=== PATIENT | male | born 1945 | race Caucasian/White ===

== ENCOUNTER 2017-10-30 02:53 | Emergency (ER) | payer OTHER, MEDICARE ==
[2017-10-30] MEDS ORDERED: NS 1,000 ML IV ONE (03:19)
[2017-10-30] MEDS ORDERED: ONDANSETRON 4 MG/2 ML VIAL IVP ONE (03:26)
[2017-10-30] MEDS ORDERED: KETOROLAC 15 MG/1 ML SDV IVP ONE (03:26)
--- NOTE | 2017-10-30 03:31 | EDPHY ---
H & P Time Seen by Provider: 10/30/17 03:19 HPI/ROS: HPI The patient presents with right-sided flank pain which has been present intermittently for the last 1 week but became worse several days ago. The pain begins in his right lower flank and radiates toward his right lower quadrant. It is achy in nature. He has taken ibuprofen with some improvement in the pain. It is associated with nausea without vomiting. The pain is moderate in severity knee currently rates at a 7/10. He does not have any dysuria or hematuria.. REVIEW OF SYSTEMS Constitutional: No fever, no chills. Eyes: No discharge. ENT: No sore throat. Cardiovascular: No chest pain, no palpitations. Respiratory: No cough, no shortness of breath. Gastrointestinal: No abdominal pain, no vomiting. Genitourinary: No hematuria. Musculoskeletal: No back pain. Skin: No rashes. Neurological: No headache. PMHx: Hypertension, chronic renal insufficiency with renal stents in place Soc Hx: Housed PHYSICAL General Appearance: Alert, comfortable-appearing Eyes: Pupils equal and round no pallor or injection ENT, Mouth: Mucous membranes moist Respiratory: There are no retractions, lungs are clear to auscultation Cardiovascular: Regular rate and rhythm Gastrointestinal: Abdomen is soft and non-tender, no masses, bowel sounds normal Back: No flank tenderness Neurological: A&O, moves all extremities Skin: Warm and dry, no rashes Musculoskeletal: Neck is supple non tender Extremities: symmetrical, full range of motion Psychiatric: Patient is oriented X 3, there is no agitation Source: Patient Exam Limitations: No limitations - Personal History Tetanus Vaccine Date: unknown - Medical/Surgical History Hx Asthma: No Hx Chronic Respiratory Disease: No Hx Diabetes: No Hx Cardiac Disease: No Hx Renal Disease: No Hx Cirrhosis: No Hx Alcoholism: No Hx HIV/AIDS: No Hx Splenectomy or Spleen Trauma: No Other PMH: HTN, intraparencymal relnal artery disease, CRF. PSHx: R leg bypass - Social History Smoking Status: Never smoked Constitutional: Initial Vital Signs Temperature (C) 36.5 C 10/30/17 03:39 Heart Rate 80 10/30/17 03:39 Respiratory Rate 16 10/30/17 03:39 Blood Pressure 150/85 H 10/30/17 03:39 O2 Sat (%) 95 10/30/17 03:39 O2 Delivery Mode Room Air Allergies/Adverse Reactions: No Known Allergies Allergy (Verified 10/30/17 03:45) Home Medications: Medication Instructions Recorded Aspirin [Aspirin 81mg (*)] 81 mg PO BID@08,22 02/22/12 Fluticasone Nasal [Flonase Nasal 1 sprays EACHNARE DAILY 02/22/12 [place]] Lisinopril [Zestril 40 mg (*)] 40 mg PO DAILY 02/22/12 Simvastatin [Zocor 20 mg] 20 mg PO DAILY 02/22/12 Pantoprazole Sodium [Protonix] 40 mg PO 03/26/13 Tamsulosin HCl 01/28/16 Zolpidem Tartrate 01/28/16 Amlodipine Besylate 10/30/17 Medical Decision Making Differential Diagnosis: This is a 72-year-old man with history of chronic kidney disease with stents in place who presents with several days of intermittent right-sided flank pain associated with nausea. On exam, he is generally well-appearing, he does not have any tenderness. Differential diagnosis includes renal colic, appendicitis, constipation. In the emergency department, IV line was established and patient was given IV fluids. He was given Zofran and Toradol for his pain. Basic labs were checked and were unremarkable except for renal function. Labs were checked and were unremarkable, patient has a history of chronic renal insufficiency. CT scan showed no kidney stones, hydronephrosis, or other findings to suggest kidney stone. He does have a ring-like structure within his transverse colon. I discussed this with him. His last colonoscopy was 3-4 years ago and was normal. I have told him that he needs to follow up with Gastroenterology and make an appointment to be seen. He felt better after IV fluids, Zofran, Toradol and was discharged home. - Data Points Laboratory Results: Laboratory Results 10/30/17 03:15 10/30/17 03:15 10/30/17 10/30/17 10/30/17 04:16 03:15 03:15 WBC 7.99 10^3/uL 10^3/uL (3.80-9.50) RBC 4.55 10^6/uL 10^6/uL (4.40-6.38) Hgb 14.2 g/dL g/dL (13.7-17.5) Hct 41.5 % % (40.0-51.0) MCV 91.2 fL fL (81.5-99.8) MCH 31.2 pg pg (27.9-34.1) MCHC 34.2 g/dL g/dL (32.4-36.7) RDW 14.1 % % (11.5-15.2) Plt Count 189 10^3/uL 10^3/uL (150-400) MPV 10.0 fL fL (8.7-11.7) Neut % (Auto) 71.6 % % (39.3-74.2) Lymph % (Auto) 17.5 % % (15.0-45.0) [place] % (Auto) 7.8 % % (4.5-13.0) Eos % (Auto) 2.1 % % (0.6-7.6) Baso % (Auto) 0.5 % % (0.3-1.7) Nucleat RBC Rel Count 0.0 % % (0.0-0.2) Absolute Neuts (auto) 5.72 10^3/uL 10^3/uL (1.70-6.50) Absolute Lymphs (auto) 1.40 10^3/uL 10^3/uL (1.00-3.00) Absolute Monos (auto) 0.62 10^3/uL 10^3/uL (0.30-0.80) Absolute Eos (auto) 0.17 10^3/uL 10^3/uL (0.03-0.40) Absolute Basos (auto) 0.04 10^3/uL 10^3/uL (0.02-0.10) Absolute Nucleated RBC 0.00 10^3/uL 10^3/uL (0-0.01) Immature Gran % 0.5 % % (0.0-1.1) Immature Gran # 0.04 10^3/uL 10^3/uL (0.00-0.10) Sodium 142 mEq/L mEq/L (135-145) Potassium 3.8 mEq/L mEq/L (3.5-5.2) Chloride 101 mEq/L mEq/L (97-110) Carbon Dioxide 24 mEq/l mEq/l (22-31) Anion Gap 17 mEq/L H mEq/L (8-16) BUN 32 mg/dL H mg/dL (7-23) Creatinine 1.4 mg/dL H mg/dL (0.7-1.3) Estimated GFR 50 Glucose 109 mg/dL H mg/dL (70-100) Calcium 8.8 mg/dL mg/dL (8.5-10.4) Total Bilirubin 0.7 mg/dL mg/dL (0.1-1.4) AST 20 IU/L IU/L (17-59) ALT 32 IU/L IU/L (21-72) Alkaline Phosphatase 80 IU/L IU/L (38-126) Total Protein 7.0 g/dL g/dL (6.3-8.2) Albumin 4.1 g/dL g/dL (3.5-5.0) Urine Color YELLOW Urine Appearance CLEAR Urine pH 6.0 (5.0-7.5) Ur Specific [place] 1.020 (1.002-1.030) Urine Protein NEGATIVE (NEGATIVE) Urine Ketones NEGATIVE (NEGATIVE) Urine Blood NEGATIVE (NEGATIVE) Urine Nitrate NEGATIVE (NEGATIVE) Urine Bilirubin NEGATIVE (NEGATIVE) Urine Urobilinogen 0.2 EU EU (0.2-1.0) Ur Leukocyte Esterase NEGATIVE (NEGATIVE) Urine Glucose NEGATIVE (NEGATIVE) Medications Given: Discontinued Medications Sodium Chloride (Ns) 1,000 mls @ 0 mls/hr IV ONCE ONE PRN Reason: Wide Open Stop: 10/30/17 03:20 Last Admin: 10/30/17 03:25 Dose: 1,000 mls Ketorolac Tromethamine (Toradol) 15 mg IVP EDNOW ONE Stop: 10/30/17 03:27 Last Admin: 10/30/17 03:31 Dose: 15 mg Ondansetron HCl (Zofran) 4 mg IVP EDNOW ONE Stop: 10/30/17 03:27 Last Admin: 10/30/17 03:31 Dose: 4 mg Departure - Departure Disposition: Home, Routine, Self-Care Clinical Impression: Right flank pain Condition: Good Instructions: Flank Pain (ED) Additional Instructions: Your pain could be related to a muscle ache. I recommend you take ibuprofen 400 mg with acetaminophen 650 mg every 6 hr as needed for pain. It is also possible that you may have passed a kidney stone. Your CT scan did show that in your colon there is an area that appears abnormal. You need to follow up with your manager of hospital and make an appointment to be seen. Referrals: [facility],. [Edm Groups for Call Sched] - As per Instructions
[2017-10-30 03:34] LABS: PLATELET COUNT 189 10^3/uL (150-400)
[2017-10-30 03:45] VITALS: RESP 16; TEMP 97.7
[2017-10-30 05:19] VITALS: BP 152/88; PULSE 72; O2SAT 94
== END 2017-10-30 04:30 | disposition home or self-care (01) ==
LOC: CED 02:53
DX: R10.9 Unspecified abdominal pain (principal); I10 Essential (primary) hypertension; Z79.82 Long term (current) use of aspirin
CPT/HCPCS: 74176; 96361; 96374; 96375; 99285; J1885; J2405; 80053-PO; 81003-PO; 85025-PO

== ENCOUNTER 2018-10-22 09:38 | Emergency (ER) | payer OTHER, MEDICARE ==
[2018-10-22] MEDS ORDERED: IBUPROFEN 600 MG TAB PO ONE (10:01)
--- NOTE | 2018-10-22 10:39 | EDPHY ---
H & P Stated Complaint: Friday started with heel pain on right side. Time Seen by Provider: 10/22/18 09:43 HPI/ROS: Chief Complaint: Heel pain HPI: 73-year-old male's been having pain in his right heel for the last 3 days. Patient states this is on the outside of his bottom of his foot. It hurts to walk on it. No falls or injuries. Does have a history of gout but this does not feel the same. No leg pain or swelling. Foot is not feel cold. No numbness or tingling. ROS: 10 systems were reviewed and were negative except those elements noted in the HPI. Social History: No smoking, no alcohol, no recreational drug use Family History: non-contributory Physical Exam: Gen: Awake, Alert, No Distress HEENT: Nose: no rhinorrhea Eyes: PERRLA, EOMI Mouth: Moist mucosa Neck: Supple, no JVD Chest: nontender, lungs clear to auscultation Heart: S1, S2 normal, no murmur Abd: Soft, non-tender, no guarding Back: no CVA tenderness, no midline tenderness Ext: no edema, patient has 2+ dorsalis pedis and posterior tibial pulses on bilateral lower extremities. Capillary refills less than 3 sec. Patient has point tenderness on the lateral aspect of his distal calcaneus reproducing his presenting complaint. There is no swelling. There is no erythema. There is no joint pain or tenderness. Sensations intact in all dermatomes. Skin: no rash Neuro: CN II-XII intact, Sensation grossly intact, Strength 5/5 in bilateral upper and lower extremities - Personal History Current Tetanus Diphtheria and Acellular Pertussis (TDAP): Yes Tetanus Vaccine Date: unknown - Medical/Surgical History Hx Asthma: No Hx Chronic Respiratory Disease: No Hx Diabetes: No Hx Cardiac Disease: No Hx Renal Disease: No Hx Cirrhosis: No Hx Alcoholism: No Hx HIV/AIDS: No Hx Splenectomy or Spleen Trauma: No Other PMH: HTN, intraparencymal relnal artery disease, CRF. PSHx: R leg bypass , appy, left shoulder repair , tonsilectomy - Social History Smoking Status: Never smoked Constitutional: Initial Vital Signs Temperature (C) 37 C 10/22/18 09:46 Heart Rate 83 10/22/18 09:46 Respiratory Rate 16 10/22/18 09:46 Blood Pressure 143/78 H 10/22/18 09:46 O2 Sat (%) 97 10/22/18 09:46 O2 Delivery Mode Room Air Allergies/Adverse Reactions: No Known Allergies Allergy (Verified 10/22/18 09:52) Home Medications: Medication Instructions Recorded Aspirin [Aspirin 81mg (*)] 81 mg PO BID@08,22 02/22/12 Fluticasone Nasal [Flonase Nasal 1 sprays EACHNARE DAILY 02/22/12 [place]] Lisinopril [Zestril 40 mg (*)] 40 mg PO DAILY 02/22/12 Simvastatin [Zocor 20 mg] 20 mg PO DAILY 02/22/12 Pantoprazole Sodium [Protonix] 40 mg PO 03/26/13 Tamsulosin HCl 01/28/16 Zolpidem Tartrate 01/28/16 Amlodipine Besylate 10/30/17 Folic Acid 10/22/18 Vitamin B12 (*) 10/22/18 Medical Decision Making - Diagnostics Imaging Results: Imaging Impressions Foot X-Ray 10/22/18 10:01 Impression: 1. Tiny Achilles calcaneal enthesophyte. 2. Diffuse soft tissue swelling with no acute osseous findings. 3. Additional findings as above. ED Course/Re-evaluation: No acute injury noted on x-ray. Patient will be discharged with follow up with primary care physician on [id number] oral analgesia. - Data Points Medications Given: Discontinued Medications Ibuprofen (Motrin) 600 mg PO EDNOW ONE Stop: 10/22/18 10:02 Last Admin: 10/22/18 10:10 Dose: 600 mg Departure - Departure Disposition: Home, Routine, Self-Care Clinical Impression: Foot pain Condition: Good Instructions: Contusion in Adults (ED) Additional Instructions: Take ibuprofen, 600 mg every 8 hr. You may alternate with acetaminophen, 1000 mg every 8 hr. Follow up with primary care physician in 3-4 days if symptoms are not improving. Referrals: Jacobo Reich MD [Primary Care Provider] - As per Instructions
[2018-10-22 11:15] VITALS: BP 140/76
== END 2018-10-22 11:14 | disposition home or self-care (01) ==
LOC: CED 09:38
DX: M79.671 Pain in right foot (principal); M77.31 Calcaneal spur, right foot; I10 Essential (primary) hypertension
CPT/HCPCS: 73630-PO; 99283-ER

== ENCOUNTER 2018-11-07 09:28 | Emergency (ER) | payer OTHER, MEDICARE ==
[2018-11-07 09:41] VITALS: BP 139/91
--- NOTE | 2018-11-07 09:43 | EDPHY ---
H & P Stated Complaint: Last Fri/ rt ear pain as well as ST,cough, Denies fever Time Seen by Provider: 11/07/18 09:40 HPI/ROS: CHIEF COMPLAINT: Ear pain, congestion, drainage into throat HISTORY OF PRESENT ILLNESS: This is a 73-year-old male with a history that includes hypertension, chronic kidney disease, and ureterolithiasis. He comes to the emergency department concerned about 10 days of right ear pain, mild right cheek pain, nasal congestion, and drainage into the back of his throat. By the end of the day he states that he has a sore throat. He has had a dry cough. He has not been aware of fever or chills. He has not had frontal headaches. No recent travel or scuba diving. He denies drainage from his right ear. He tried rinsing his right ear with a saline solution, to no avail. He has taken an occasional ibuprofen during this illness. He has been unable to wear his hearing aids because his right ear is bothering him and the quality of the sound is altered. He has a history of sinus infections. He had frequent ear infections as a child but these stopped after he had his tonsils removed. REVIEW OF SYSTEMS: A ten system review of systems was performed and is negative with the exception of the items mentioned in the HPI. Past medical history: 1. Hypertension 2. Chronic kidney disease 3. Hard of hearing Past surgical history: 1. Renal stents 2. Right leg bypass 3. Left shoulder surgery 4. Appendectomy 5. Tonsillectomy Social history: He lives alone. He is retired from [employer]. He does not use tobacco products, alcohol, or illicit drugs. General Appearance: Alert. Vital signs reviewed. Blood pressure 131/91. Eyes: Pupils equal and round, no conjunctival injection, no discharge. Anicteric. ENT, Mouth: Right tympanic membrane appears scarred and dull. No TM perforation. It is not bulging or erythematous. Right external auditory canal appears normal without swelling or debris. The left tympanic membrane and external auditory canal appear normal. Mucous membranes are moist, no oropharyngeal erythema or edema. No drainage in the posterior oropharynx. Mild tenderness to palpation over the right maxillary sinus. Neck: No lymphadenopathy, supple. Trachea midline. Respiratory: Lungs are clear to auscultation; no wheezes, rales, or rhonchi. Cardiovascular: Regular rate and rhythm; no murmur, rub, or gallop. Gastrointestinal: Abdomen is soft and nontender, no masses or organomegaly, bowel sounds normal. Skin: Warm and dry, no rashes on exposed skin, normal color. Neurological: Alert and oriented. Moving all four extremities easily and equally. Psychiatric: Normal affect. - Personal History Tetanus Vaccine Date: unknown - Medical/Surgical History Hx Asthma: No Hx Chronic Respiratory Disease: No Hx Diabetes: No Hx Cardiac Disease: No Hx Renal Disease: No Hx Cirrhosis: No Hx Alcoholism: No Hx HIV/AIDS: No Hx Splenectomy or Spleen Trauma: No Other PMH: HTN, intraparencymal renal artery disease, CRF. PSHx: R leg bypass, appy, left shoulder repair , tonsilectomy - Social History Smoking Status: Never smoked Constitutional: Initial Vital Signs Temperature (C) 36.8 C 11/07/18 09:36 Heart Rate 93 11/07/18 09:36 Respiratory Rate 16 11/07/18 09:36 Blood Pressure 139/91 H 11/07/18 09:36 O2 Sat (%) 95 11/07/18 09:36 O2 Delivery Mode Room Air Allergies/Adverse Reactions: No Known Allergies Allergy (Verified 11/07/18 09:34) Home Medications: Medication Instructions Recorded Aspirin [Aspirin 81mg (*)] 81 mg PO BID@,02/22/12 Fluticasone Nasal [Flonase Nasal 1 sprays EACHNARE DAILY 02/22/12 [place]] Lisinopril [Zestril 40 mg (*)] 40 mg PO DAILY 02/22/12 Simvastatin [Zocor 20 mg] 20 mg PO DAILY 02/22/12 Pantoprazole Sodium [Protonix] 40 mg PO 03/26/13 Tamsulosin HCl 01/28/16 Zolpidem Tartrate 01/28/16 Amlodipine Besylate 10/30/17 Folic Acid 10/22/18 Vitamin B12 (*) 10/22/18 Amoxicillin 500 mg PO TID 10 Days #15 tab.[email or web address] 11/07/18 Medical Decision Making ED Course/Re-evaluation: 73-year-old male with right ear pain, mild right facial tenderness, and sinus drainage. He has been ill for over 10 days. Although this could be a viral upper respiratory infection, I suspect sinusitis. Given the length of his illness I am choosing to start antibiotics. I will treat him with amoxicillin 500 mg three times daily. I do not find evidence of otitis media or otitis externa. Nothing to suggest barotrauma. He does not have signs and symptoms of influenza. He is well-hydrated and does not appear toxic. He knows that his BP was high in the ED. He has a history of HTN and has taken his morning antihypertensive. He will have his blood pressure checked by his PCP, Dr. Reich. Departure - Departure Disposition: Home, Routine, Self-Care Clinical Impression: Sinusitis, acute Qualifiers: Sinusitis location: maxillary Recurrence: recurrent Qualified Code(s): J01.01 - Acute recurrent maxillary sinusitis Condition: Good Instructions: Rhinosinusitis (ED) Additional Instructions: Take the antibiotic, amoxicillin, 3 times daily for 5 days. Adult Pain & Fever Control: We recommend Acetaminophen (Tylenol) and Ibuprofen (Motrin,Advil) for pain and fever control. When fever is high or pain severe, both drugs can be used at the same time, but at different intervals. Please note the time differences. Your dose is: Acetaminophen [650 mg]mg every 4 to 6 hours Note: do not take Acetaminophen with Hydrocodone (Vicodin, Lortab) or Oycodone (Percocet). These medications also contain Acetaminophen. No more than 3000mg of Acetaminophen should be taken in 24 hours (for an adult). Do not put anything in your ear. It does not need cleaning or irrigation at this time. It is okay for you to wear your hearing aids if it is comfortable for you to do so. Referrals: Jacobo Reich MD [Primary Care Provider] - As per Instructions Prescriptions: Amoxicillin 500 mg PO TID 10 Days #15 tab.[email or web address]
== END 2018-11-07 10:16 | disposition home or self-care (01) ==
LOC: CED 09:28
DX: J01.01 Acute recurrent maxillary sinusitis (principal)
CPT/HCPCS: 99283-ER

== ENCOUNTER 2019-01-07 08:55 | Emergency (ER) | payer OTHER, MEDICARE ==
--- NOTE | 2019-01-07 09:12 | EDPHY ---
H & P Stated Complaint: eap pain and chills for 2 months Time Seen by Provider: 01/07/19 09:07 HPI/ROS: CHIEF COMPLAINT: Right ear pain HISTORY OF PRESENT ILLNESS: Patient is a 73-year-old man who comes to the emergency department complaining of 2 months right ear pain. He is concerned about sinus infection. He was seen here in October and had similar symptoms for the previous 10 days but had a fairly unremarkable exam but was prescribed amoxicillin. He states that his sore throat improved and that his ear pain improved for about a week but then returned. He denies hearing changes. He denies headaches. He denies fevers but states he has had occasional chills. No chest pain or shortness of breath. He states that he can feel his ear draining into his throat. He thinks he probably has allergies. He also states that he has had a 15 lb weight loss but the majority of that occurred when he was passing a kidney stone several weeks ago did not feel like eating for several weeks. That has since resolved. No vertigo. No hearing changes. No vision changes. Severity: Moderate Modifying factors: None REVIEW OF SYSTEMS: Constitutional: denies: chills, fever, recent illness, recent injury EENTM: See HPI denies: blurred vision, double vision, nose congestion Respiratory: denies: cough, shortness of breath Cardiac: denies: chest pain, irregular heart rate, lightheadedness, palpitations Gastrointestinal/Abdominal: denies: abdominal pain, diarrhea, nausea, vomiting, blood streaked stools Genitourinary: denies: dysuria, frequency, hematuria, pain Musculoskeletal: denies: joint pain, muscle pain Skin: denies: lesions, rash, jaundice, bruising Neurological: denies: headache, numbness, paresthesia, tingling, dizziness, weakness Hematologic/Lymphatic: denies: blood clots, easy bleeding, easy bruising Immunologic/allergic: denies: HIV/AIDS, transplant 10 systems reviewed and negative except as noted EXAM: GENERAL: Well-appearing, well-nourished and in no acute distress. HEAD: Atraumatic, normocephalic. EYES: Pupils equal round and reactive to light, extraocular movements intact, sclera anicteric, conjunctiva are normal. ENT: TMs normal, no erythema of the ear canal. No drainage. No perforation. No bulging. nares patent, oropharynx clear without exudates. Moist mucous membranes. No clicking or popping with opening closing her jaw. No visible dental infections or cavities. NECK: Normal range of motion, supple without lymphadenopathy or JVD. LUNGS: Breath sounds clear to auscultation bilaterally and equal. No wheezes rales or rhonchi. HEART: Regular rate and rhythm without murmurs, rubs or gallops. ABDOMEN: Soft, nontender, normoactive bowel sounds. No guarding, no rebound. No masses appreciated. BACK: No CVA tenderness, no spinal tenderness, step-offs or deformities EXTREMITIES: Normal range of motion, no pitting or edema. No clubbing or cyanosis. NEUROLOGICAL: Cranial nerves II through XII grossly intact. Normal speech, normal gait. 5/5 strength, normal movement in all extremities, normal sensation , normal reflexes PSYCH: Normal mood, normal affect. SKIN: Warm, dry, normal turgor, no visible rashes or lesions. Source: Patient Exam Limitations: No limitations - Personal History Current Tetanus Diphtheria and Acellular Pertussis (TDAP): Yes Tetanus Vaccine Date: unknown - Medical/Surgical History Hx Asthma: No Hx Chronic Respiratory Disease: No Hx Diabetes: No Hx Cardiac Disease: No Hx Renal Disease: No Hx Cirrhosis: No Hx Alcoholism: No Hx HIV/AIDS: No Hx Splenectomy or Spleen Trauma: No Other PMH: HTN, intraparencymal renal artery disease, CRF. PSHx: R leg bypass, appy, left shoulder repair , tonsillectomy,kidney stones - Family History Significant Family History: No pertinent family hx - Social History Smoking Status: Never smoked Alcohol Use: None Constitutional: Initial Vital Signs Temperature (C) 36.6 C 01/07/19 09:07 Heart Rate 97 01/07/19 09:07 Respiratory Rate 16 01/07/19 09:07 Blood Pressure 120/74 01/07/19 09:07 O2 Sat (%) 96 01/07/19 09:07 O2 Delivery Mode Room Air Allergies/Adverse Reactions: No Known Allergies Allergy (Verified 01/07/19 09:05) Home Medications: Medication Instructions Recorded Aspirin [Aspirin 81mg (*)] 81 mg PO BID@08,22 02/22/12 Fluticasone Nasal [Flonase Nasal 1 sprays EACHNARE DAILY 02/22/12 [place]] Lisinopril [Zestril 40 mg (*)] 40 mg PO DAILY 02/22/12 Simvastatin [Zocor 20 mg] 20 mg PO DAILY 02/22/12 Pantoprazole Sodium [Protonix] 40 mg PO 03/26/13 Tamsulosin HCl 01/28/16 Zolpidem Tartrate 01/28/16 Amlodipine Besylate 10/30/17 Folic Acid 10/22/18 Vitamin B12 (*) 10/22/18 Medical Decision Making - Diagnostics Imaging Results: Imaging Impressions Head CT 01/07/19 09:12 Impression: 1. Mild sinusitis. 2. No acute hemorrhage, hydrocephalus, or mass effect. 3. Cerebrovascular atherosclerosis. 4. No definite acute infarct. 5. Mastoid air cells and middle ears appear clear. 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 Findings and recommendations discussed with Emergency Department physician, Lauro Kim, at 0942 hours, 01/07/2019. Final report concurs with initial preliminary interpretation. Imaging: Discussed imaging studies w/ horse farm manager Radiologist ED Course/Re-evaluation: Decision was made to order head CT because of patient's duration of symptoms greater than 6 weeks as well as weight loss and chills. CT was reassuring overall. Patient feels relieved. I do not have an explanation for his chronic ear pain. He does have an ENT doctor that he has seen before and he will follow up with them. We also discussed indications for returning to the ER. Differential Diagnosis: Partial list of the Differential diagnosis considered include but were not limited to; otitis media, otitis externa, malignant otitis, tumor and although unlikely based on the history and physical exam, I also considered CVA, pharyngeal infection, endocarditis, sepsis. I discussed these differential diagnoses and the plan with the patient as well as the usual and expected course. The patient understands that the diagnosis is provisional and that in medicine we are not always correct and that further workup is often warranted. Usual and customary warnings were given. All of the patient's questions were answered. The patient was instructed to return to the emergency department should the symptoms at all worsen or return, otherwise to followup with the physician as we discussed. Departure - Departure Disposition: Home, Routine, Self-Care Clinical Impression: Right ear pain Condition: Fair Instructions: Earache (ED) Referrals: Dobija,C Sabino, MD [Primary Care Provider] - As per Instructions Jennifer Cates MD [Medical Doctor] - 2-3 days without fail
[2019-01-07 10:07] VITALS: BP 103/63
== END 2019-01-07 10:00 | disposition home or self-care (01) ==
LOC: CED 08:55
DX: H92.01 Otalgia, right ear (principal)
CPT/HCPCS: 70450-PO; 99284-ER